=== PATIENT | male | born 1950 ===

== ENCOUNTER 2023-12-02 06:08 | Day surgery (SDC) | payer OTHER ==
[~2023-12-02] VITALS: Ht 182.9 cm; Wt 93.1 kg
[~2023-12-02 06:08] MED LIST: BASAGLAR K100 UNIT/6; Balanced Salt Epinephrine Irrigation Solution 500 mL IR SCH; JARDIANCE25 MG PO; Lidocaine HCl/Pf 1% 5 ML VIAL XX SCH; Moxifloxacin HCL 0.5 MG/0.1 ML 0.4MLSYR RIGHTEYE SCH; NS 500 ML IV ONE; PHENYLEPHRINE\\TROPICAMIDE\\TETRACAINE OPHTHALMIC DILATING SOLN RIGHTEYE PRN; Povidone-Iodine 450 DROP/30 ML Solution ONE; Povidone-Iodine 450 DROP/30 ML Solution RIGHTEYE SCH; TRULICITY0.75 MG/01; TRULICITY3 MG/0.5 M SQ
[2023-12-02] MEDS ORDERED: Tropicamide 1% Opth Soln 15 ML BTL ONE (06:13)
[2023-12-02] MEDS ORDERED: NS 500 ML IV ONE (06:27)
--- NOTE | 2023-12-02 06:27 | NUR ---
12/02/23 0627 Raoul Austin CALL LIGHT WITHIN REACH. TETRACAINE IN AT 0621 IN THE RIGHT EYE AND PLEDGETT IN AT 0622
[2023-12-02] MEDS ORDERED: Lidocaine HCl/Pf 1% 5 ML VIAL ONE (06:46)
[2023-12-02] MEDS ORDERED: Midazolam HCl 1MG / ML 2ML Vial ONE (07:15)
[2023-12-02] MEDS ORDERED: FentaNYL Citrate 50 MCG/ML 2 ML Injection ONE (07:15)
[2023-12-02] MEDS ORDERED: Tetracaine HCl 0.5% Opth Soln 15 ml RIGHTEYE ONE (07:34)
[2023-12-02 08:22] VITALS: BP 123/80
--- NOTE | 2023-12-02 14:36 | NUR ---
12/02/23 1436 Eleonora Kraus SURGICAL SITE PREPPED BY CHELSEA BHATIA - RESERVOIR ENGINEERING MANAGER TRAVELER
== END 2023-12-02 08:18 | disposition home or self-care (01) ==
LOC: ORSCSDS 06:08
PROVIDERS: Student in an Organized Health Care Education/Training Program
PROC: 08RJ3JZ Replacement of Right Lens with Synthetic Substitute, Percutaneous Approach (ICD-10-PCS; principal; 2023-12-02 07:30)
DX: E11.36 Type 2 diabetes mellitus with diabetic cataract (principal); H25.13 Age-related nuclear cataract, bilateral; H21.81 Floppy iris syndrome; Z79.4 Long term (current) use of insulin; Z79.899 Other long term (current) drug therapy
CPT/HCPCS: 82947; J2001; J2250; J3010; J7040; V2632